=== PATIENT | male | born 1995 | race Caucasian/White ===

== ENCOUNTER → 2017-10-23 | Outpatient (CLI) | payer OTHER ==
--- NOTE | 2017-10-23 11:29 | DIAGNOSTIC IMAGING REPORT ---
ULTRASOUND RIGHT GROIN NONVASCULAR CLINICAL HISTORY: Right groin pain. COMPARISON STUDY: No priors. FINDINGS: Real-time grayscale sonography of the right groin is performed to assess for inguinal hernia. There is a fat-containing right inguinal hernia which was partially reducible during the examination. No bowel or fluid is identified within the hernia. The hernia measures 1.7 cm in diameter. IMPRESSION: There is a partially reducible fat-containing right inguinal hernia as above. Electronically signed by: Jonathan Chand M.D. 10/23/2017 11:28 AM Dictated Date/Time: 10/23/2017 11:27 AM
== END | disposition home or self-care (01) ==
LOC: C.ULTR 10:47
PROVIDERS: ATTEND Surgery
DX: R10.30 Lower abdominal pain, unspecified (principal); K40.90 Unilateral inguinal hernia, without obstruction or gangrene, not specified as recurrent

== ENCOUNTER → 2017-12-29 | Day surgery (SDC) | payer OTHER ==
[2017-12-08 08:22] VITALS: Ht 172.1 cm; Wt 71.8 kg
[~2017-12-29] VITALS: Ht 172.1 cm; Wt 71.8 kg
[~2017-12-29] MED LIST: AMPH10TA2 PO; AMPH30CA3 PO; ATROPINE SULFATE 0.1 MG/ML 5ML SYR IV PRN; BUPIVACAINE 0.5 % 5 MG/1 ML MPF 30ML VIAL ONE; CEFAZOLIN 2000MG IV PUSH 15 ML IV SCH; DEXAMETHASONE SOD INJ 4 MG/ML VIAL ONE; EpHEDrine SULFATE INJ 50 MG/ML AMP IV PRN; EpINEphrine INJ 1MG/ML AMP 1 MG/ML AMP ONE; FENTANYL CITRATE INJ 50 MCG/1 ML 2 ML VIAL IV PRN; FENTANYL CITRATE INJ 50 MCG/1 ML 2 ML VIAL ONE; FLUMAZENIL 0.1 MG/1 ML 10 ML VIAL IV PRN; LACTATED RINGER'S 1000ML 1,000 ML IV SCH; LIDOCAINE HCL 2% 2 ML VIAL (20MG/ML) ONE; MIDAZOLAM HCL 1 MG/ML 2ML VIAL ONE; MoRPHine SULFATE 4 MG/ML 1 ML CARP\\VIAL IV PRN; NALOXONE HCL 0.4 MG/1 ML VIAL/CARP IV PRN; ONDANSETRON INJ 2 MG/ML 2 ML VIAL IV PRN; ONDANSETRON INJ 2 MG/ML 2 ML VIAL ONE; OXYC-57 PO; OXYCODONE/ACETAMINOPHEN 5-325 TAB PO PRN; PROMETHAZINE HCL INJ 12.5 MG in SODIUM CHLORIDE 0.9% 50ML 50 ML IV PRN; PROPOFOL IV EMULSION 10 MG/ML 20 ML VIAL ONE; SERT50TA PO
--- NOTE | 2017-12-29 11:01 | History & Physical Bridge Note ---
H&P Re-Evaluation Bridge Note: I have examined the patient, reviewed the History & Physical and in the interval since the performance of the History & Physical I have noted the following changes of clinical significance: No changes noted
--- NOTE | 2017-12-29 12:42 | [facility] Post Operative Brief Note ---
Immediate Operative Summary Operative Date December 29, 2017. Pre-Operative Diagnosis Right Inguinal Hernia Post-Operative Diagnosis Same Procedure(s) Performed Right Inguinal Hernia Open Repair With Mesh ( plug and patch) Surgeon Dr. Danielle Integration Developer Surgeon(s) Dell Morrison PA-C; Nam Rhoades PA-C Estimated Blood Loss 20 mL Findings Consistent with Post-Op Diagnosis Specimens None Anesthesia Type General Complication(s) none
--- NOTE | 2017-12-29 12:50 | [facility] Operative Report ---
Operative Report Operative Date December 29, 2017. Pre-Operative Diagnosis Right Inguinal Hernia Post-Operative Diagnosis Same Procedure(s) Performed Right Inguinal Hernia Open Repair With Mesh ( plug and patch) Surgeon Dr. Danielle Paper Sample Clerk Surgeon(s) Dell Morrison PA-C; Nam Rhoades PA-C Estimated Blood Loss 20 mL Specimens None Anesthesia Type General Complication(s) none Description of Procedure After informed consent was obtained the patient was taken to the operating room and placed in supine position. After successful placement of the laryngeal mask airway the groin was shaved and sterilely prepped and draped in usual fashion. An inguinal incision was made with a 15 blade scalpel and carried down through the soft tissue using electrocautery. The external oblique aponeurosis was skeletonized. A fresh blade was used to make an incision and then Metzenbaum scissors were used to extend this distally through the external ring as well as for several centimeters proximally. Once in the inguinal canal I used blunt finger dissection to free up the cord and cord structures. I was able to gently tease the cord off of the pubic bone and placed a Traci drain around it. It was obvious that there was an extremely large inguinal hernia with a chronic sac that was tightly adhesed to the cord and cord structures. It was an indirect hernia. We dissected this back to its neck and then dunked it back into the abdominal cavity. Because of the large defect it was unable to stay self reduced. I therefore decided to use a polypropylene plug and patch technique. I placed a medium-sized polypropylene patch into the defect and secured it to shelving portion of Poupart's ligament as well as surrounding musculature with 0 Ethibond. I made sure that it was not impinging on the cord and cord structures. Next, I used a polypropylene vieira-holed mesh as an onlay. It was secured distally to Shimon's ligament, laterally along the shelving portion of Poupart's ligament and medially along the midline musculature. 0 Ethibond was used for the suturing. The "arms" of the mesh were wrapped around behind the cord and cord structures and again secured to underlying muscle. The mesh laid nice and flat and tension-free and did not impinge on the cord structures themselves. We thoroughly irrigated the wound. There was adequate hemostasis. I injected Marcaine around the edges of the mesh for postoperative analgesia. We then closed the external oblique aponeurosis with 2-0 Vicryl in a running fashion. Soft tissue was irrigated and closed in multiple layers using 3-0 Vicryl for the deep layers and 4-0 Monocryl for the skin. Some additional Marcaine was injected around the skin incision. We then used a skin glue as a dressing. The patient was awaken extubated and transferred to recovery in stable condition. My physician's real estate assistant was present throughout the entire procedure. He helped prep the patient. Helped with retraction throughout the case to aid my dissection, assisted with wound closure as well as dressing placement. I attest to the content of the Intraoperative Record and any orders documented therein. Any exceptions are noted below. I attest to the content of the Intraoperative Record and any orders documented therein. Any exceptions are noted below.
--- NOTE | 2017-12-29 12:59 | Discharge Instructions ---
Discharge Instructions Date of Service December 29, 2017. Visit Reason for Visit: Right Inguinal Hernia Discharge Discharge Diagnosis / Problem: repair inguinal hernia Discharge Goals Goal(s): Decrease discomfort Medications Stopped Medications Name(s): Did not take Adderall today. Activity Recommendations Activity Limitations: as noted below Lifting Limitations: no more than 10 pounds Shower/Bathe: no limitations Driving or Machine Use: 1 week Anesthesia . Post Anesthesia Instructions: If you have had General Anesthesia or IV Sedation: * Do not drive today. * Resume driving when surgeon permits. * Do not make important decisions or sign legal documents today. * Call surgeon for: 1. Temperature elevations greater than 101 degrees F. 2. Uncontrollable pain. 3. Excessive bleeding. 4. Persistent nausea and vomiting. 5. Medication intolerance (nausea, vomiting or rash). * For nausea and vomiting use only clear liquids such as: tea, soda, bouillon until nausea subsides, then gradually increase diet as tolerated. * If you have any concerns or questions, call your surgeon's office. If physician is unavailable and it is an emergency, call 911 or go to the nearest emergency room. . Instructions / Follow-Up Instructions / Follow-Up Dr. Danielle in 12- weeks as planned, call [phone] if you have any questions Ice right groin off and on today alternating every 20 minutes until bedtime Diet Recommendations Recommended Home Diet: no limitations Procedures Procedures Performed: Right Inguinal Hernia Open Repair With Mesh ( plug and patch) Pending Studies Studies pending at discharge: no Medical Emergencies . Who to Call and When: Medical Emergencies: If at any time you feel your situation is an emergency, please call 911 immediately. . Non-Emergent Contact Non-Emergency issues call your: Surgeon Call Non-Emergent contact if: you have a fever, temperature is above 101.5, your pain is not controlled, wound has increased redness, you have any medication questions . . "Provider Documentation" section prepared by Gary Rhoades. .
[2017-12-29 13:50] VITALS: TEMP 36.4
[2017-12-29 14:06] VITALS: BP 130/86; PULSE 73; O2SAT 99
--- NOTE | 2017-12-29 14:08 | Anesthesia Progress Nt - [facility] ---
Anesthesia Post Op Note Date & Time December 29, 2017 at 14:08 Vital Signs Pain Intensity: 1 Vital Signs Past 12 Hours Date Time Temp Pulse Resp B/P (MAP) Pulse Ox O2 Delivery O2 Flow Rate FiO2 12/29/17 14:06 73 16 130/86 (101) 99 Room Air 12/29/17 13:50 36.4 86 16 129/87 (101) 98 Room Air 12/29/17 13:33 36.4 79 12 132/92 97 Room Air 12/29/17 13:32 82 17 96 12/29/17 13:32 83 17 12/29/17 13:31 132/92 12/29/17 13:27 87 15 12/29/17 13:27 85 15 94 12/29/17 13:26 129/83 12/29/17 13:22 82 7 99 12/29/17 13:22 79 7 12/29/17 13:21 127/83 12/29/17 13:17 95 14 98 12/29/17 13:17 93 14 12/29/17 13:16 136/78 12/29/17 13:12 93 12 12/29/17 13:12 93 12 99 12/29/17 13:11 135/81 12/29/17 13:07 89 10 99 12/29/17 13:07 92 10 12/29/17 13:06 155/61 12/29/17 13:03 134/82 12/29/17 13:02 36.9 93 16 134/82 97 Mask 6 12/29/17 10:08 36.8 69 16 119/85 (96) 98 Room Air Notes Mental Status: alert / awake / arousable, participated in evaluation Pt Amnestic to Procedure: Yes Nausea / Vomiting: adequately controlled Pain: adequately controlled Airway Patency, RR, SpO2: stable & adequate BP & HR: stable & adequate Hydration State: stable & adequate Anesthetic Complications: no major complications apparent
== END | disposition home or self-care (01) ==
LOC: X.SURG 09:50
PROVIDERS: ATTEND Surgery
DX: K40.90 Unilateral inguinal hernia, without obstruction or gangrene, not specified as recurrent (principal); F90.9 Attention-deficit hyperactivity disorder, unspecified type; Z82.49 Family history of ischemic heart disease and other diseases of the circulatory system; Z82.3 Family history of stroke